=== PATIENT | female | born 1990 | race Caucasian/White ===

== ENCOUNTER 2022-08-23 06:26 | Outpatient (CLI) | payer OTHER, SELFPAY ==
[2022-08-23 06:42] VITALS: PULSE 96; O2SAT 98
[2022-08-23 06:43] VITALS: BP 112/71; PULSE 104; PULSE 96; TEMP 36.6; O2SAT 99
[2022-08-23 06:47] VITALS: PULSE 98; O2SAT 98
[2022-08-23 06:52] VITALS: PULSE 106; O2SAT 97
[2022-08-23 06:57] VITALS: PULSE 98; O2SAT 97
[2022-08-23 07:02] VITALS: PULSE 105; O2SAT 97
[2022-08-23 07:05] VITALS: BMI 31.6
--- NOTE | 2022-08-23 08:24 | OB.TRI.HP_ITS ---
HPI - General General Date of Service: 08/23/22 Chief Complaint: decreased FM HPI Narrative GLADIS LOPEZ, is a 32 F who presents [facility] Medical History (Updated 08/24/22 @ 08:[address] Vee Stevens MD) Anxiety Polyhydramnios Home Medications Celexa 40 mg PO.IVFORM DAILY anxiety 08/23/22 [History Last Taken Unknown] Prenatabs FA 1 tab PO.IVFORM DAILY 08/23/22 [History Last Taken Unknown] Allergy/AdvReac Type Severity Reaction Status Date / Time No Known Allergies Allergy Verified 08/23/22 07:07 Surgical History (Updated 08/23/22 @ 07:09 by Yanet Tinajero) H/O: History of appendectomy
--- NOTE | 2022-08-24 08:19 | OB.TRI.NOTE ---
HPI - General General Date of Service: 08/23/22 Chief Complaint: decreased FM HPI Narrative GLADIS LOPEZ, is a 32 F [id number] presents at 34 weeks gestation for decreased FM- patient of lara [facility]. PFSH [facility] Medical History (Updated 08/24/22 @ 08:[address] Vee Stevens MD) Anxiety Polyhydramnios Home Medications Celexa 40 mg PO.IVFORM DAILY anxiety 08/23/22 [History Last Taken Unknown] Prenatabs FA 1 tab PO.IVFORM DAILY 08/23/22 [History Last Taken Unknown] Allergy/AdvReac Type Severity Reaction Status Date / Time No Known Allergies Allergy Verified 08/23/22 07:07 Surgical History (Updated 08/23/22 @ 07:09 by Yanet Tinajero) H/O: History of appendectomy NST FHR Rate Baby A Baseline: 140 Variability:: Moderate Accelerations:: 15 x 15 Decelerations:: None NST Reactive:: Yes FHR Category:: Category I Uterine Activity:: none Assessment & Plan (1) 34 weeks gestation of : (2) Decreased movement: PLAN: Plan @ 34 weeks- c/o decreased FM- patient of [facility] 1) NST reactive Cat 1 tracing- dc home follow up with OB
== END 2022-08-23 07:15 | disposition home or self-care (01) ==
LOC: WPOUT 06:41 → WP 06:42
PROVIDERS: PCP Student in an Organized Health Care Education/Training Program; Referring Provider Obstetrics & Gynecology; Visit Provider Obstetrics & Gynecology
DX: O36.8130 Decreased fetal movements, third trimester, not applicable or unspecified (principal); O34.219 Maternal care for unspecified type scar from previous cesarean delivery; Z3A.34 34 weeks gestation of pregnancy; O99.343 Other mental disorders complicating pregnancy, third trimester; F41.9 Anxiety disorder, unspecified; Z79.899 Other long term (current) drug therapy
CPT/HCPCS: 59025; 59050; 99221; G0378